=== PATIENT | female | born 1950 | race Caucasian/White ===

== ENCOUNTER 2017-10-10 06:38 | Day surgery (SDC) | payer BC ==
[~2017-10-10] VITALS: Ht 162.6 cm; Wt 83.7 kg
[2017-10-10 07:59] VITALS: BP 134/84
[2017-10-10] MEDS ORDERED: SODIUM CHLORIDE 0.9% 1,000 ML IV SCH (08:02)
[2017-10-10] MEDS ORDERED: INSU100C SQ-INSULIN (08:05)
[2017-10-10] MEDS ORDERED: IRON PO (08:05)
[2017-10-10] MEDS ORDERED: VIT1TABL59 PO (08:05)
[2017-10-10] MEDS ORDERED: ATOR20TA9 PO (08:05)
[2017-10-10 08:29] LABS: ANION GAP 10 mmol/L (5-15); CALCIUM 9.4 mg/dL (8.5-10.1); CHLORIDE 99 mmol/L (98-107)
[2017-10-10 08:30] LABS: CREATININE 1.74 mg/dL (0.55-1.02)
[2017-10-10 08:50] LABS: BASOPHILS # (AUTO) 0.04 x10^3/uL (0-0.1); BASOPHILS % (AUTO) 0 % (0-1); EOSINOPHILS # (AUTO) 0.26 x10^3/uL (0-0.4); EOSINOPHILS % (AUTO) 2 % (1-7); LYMPHOCYTES # (AUTO) 2.95 x10^3/uL (1-3.4); LYMPHOCYTES % (AUTO) 25 % (22-44); MD NO; MEAN CORPUSCULAR HEMOGLOBIN 29.7 pg (27.0-34.8); MEAN CORPUSCULAR HGB CONC 33.2 g/dL (32.4-35.8); MEAN CORPUSCULAR VOLUME 89.3 fL (80-100); MEAN PLATELET VOLUME 8.9 fL (7.4-10.4); MONOCYTES # (AUTO) 0.77 x10^3/uL (0.2-0.8); MONOCYTES % (AUTO) 6 % (2-9); NEUTROPHILS # (AUTO) 8.01 x10^3/uL (1.8-6.8); NEUTROPHILS % (AUTO) 67 % (42-75); PLATELET COUNT 273 x10^3/uL (130-400); RED BLOOD COUNT 3.79 x10^6/uL (3.82-5.3); RED CELL DISTRIBUTION WIDTH 19.3 % (9.6-15.2)
[2017-10-10] MEDS ORDERED: FENTANYL PF 100 MCG/2ML ONE ×2 (09:07)
[2017-10-10] MEDS ORDERED: FLUMAZENIL 0.1 MG/1 ML, 5ML ONE (09:08)
[2017-10-10] MEDS ORDERED: NITROGLYCERIN 5 MG/ML, 10ML ONE (09:08)
[2017-10-10] MEDS ORDERED: PROTAMINE SULFATE 10 MG/ML, 25ML ONE (09:08)
[2017-10-10] MEDS ORDERED: HEPARIN 1,000 UNITS/ML, 10ML ONE (09:08)
[2017-10-10] MEDS ORDERED: MIDAZOLAM 1 MG/ML, 2ML ONE (09:08)
[2017-10-10] MEDS ORDERED: NALOXONE 1 MG/ML, 2ML ONE (09:08)
[2017-10-10] MEDS ORDERED: LIDOCAINE 2%, 20ML ONE (09:12)
== END 2017-10-10 12:00 ==
LOC: OUT 06:38
DX: T82.858A Stenosis of other vascular prosthetic devices, implants and grafts, initial encounter (principal); E11.22 Type 2 diabetes mellitus with diabetic chronic kidney disease; N18.9 Chronic kidney disease, unspecified; Y83.8 Other surgical procedures as the cause of abnormal reaction of the patient, or of later complication, without mention of misadventure at the time of the procedure; Y92.89 Other specified places as the place of occurrence of the external cause; Z98.890 Other specified postprocedural states; Z87.891 Personal history of nicotine dependence
CPT/HCPCS: 36415; 36902; 80048; 85025; 99156; 99157; C1725; C1769; C1894; J2250; J3010; J3490; J7030; J1644; J2720; J2310